=== PATIENT | male | born 1945 | race African-American/Black ===

== ENCOUNTER 2020-10-10 13:05 | Emergency (ER) | payer MEDICARE, OTHER ==
[2020-10-10] MEDS ORDERED: Lidocaine 1% w/Epinephrine 1:100K 20 ML VIAL ONE (13:31)
[2020-10-10] MEDS ORDERED: Boostrix 0.5 ML (Tdap) VIAL ONE (13:31)
== END 2020-10-10 15:20 | disposition home or self-care (01) ==
LOC: MADERS 13:05
DX: S01.312A Laceration without foreign body of left ear, initial encounter (principal); I25.2 Old myocardial infarction; I10 Essential (primary) hypertension; W22.8XXA Striking against or struck by other objects, initial encounter
CPT/HCPCS: 12052; 90471; 90715

== ENCOUNTER 2020-10-21 15:07 | Emergency (ER) | payer MEDICARE | END 2020-10-21 15:59 | disposition home or self-care (01) | LOC: MADERS 15:07 | DX: S01.312D Laceration without foreign body of left ear, subsequent encounter (principal); E78.5 Hyperlipidemia, unspecified; E78.00 Pure hypercholesterolemia, unspecified; I25.2 Old myocardial infarction; I10 Essential (primary) hypertension; X58.XXXD Exposure to other specified factors, subsequent encounter; Z79.899 Other long term (current) drug therapy ==

== ENCOUNTER 2023-10-20 09:54 | Emergency (ER) | payer MEDICARE | END 2023-10-20 10:56 | disposition home or self-care (01) | LOC: MADERS 09:54 | DX: I10 Essential (primary) hypertension (principal); F43.0 Acute stress reaction; J44.9 Chronic obstructive pulmonary disease, unspecified; E78.00 Pure hypercholesterolemia, unspecified; Z87.891 Personal history of nicotine dependence; Z79.899 Other long term (current) drug therapy | CPT/HCPCS: 99283 ==